=== PATIENT | male | born 1955 | race Caucasian/White ===

== ENCOUNTER 2018-04-28 15:21 | Emergency (ER) | payer SELFPAY ==
[2018-04-28] MEDS ORDERED: Morphine 10 MG/ML Syringe IVPUSH ONE ×2 (15:48→16:10)
--- NOTE | 2018-04-28 15:54 | EDM.PDOC ---
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 Treatments DIAGNOSTIC MEDICAL SONOGRAPHER: Reports: Other (see below) Other Treatments DIAGNOSTIC MEDICAL SONOGRAPHER: Tylenol Left rib Pain Score (Numeric/FACES): 10 - Related Data Allergies Allergy/AdvReac Type Severity Reaction Status Date / Time No Known Allergies Allergy Verified 04/28/18 15:37 Home Meds: Home Meds Aspirin [Halfprin] 81 mg PO DAILY 04/28/18 [History] Carvedilol 25 mg PO BID 04/28/18 [History] Furosemide 20 mg PO DAILY 04/28/18 [History] Lidocaine 5% [Lidoderm 5%] 1 patch TOP DAILY 04/28/18 [History] Warfarin [Coumadin] 5 mg PO DAILY 04/28/18 [History] hydrALAZINE [Apresoline] 25 mg PO BEDTIME 04/28/18 [History] hydrALAZINE [Apresoline] 50 mg PO DAILY 04/28/18 [History] Past Medical History HEENT History: Reports: Impaired Vision Cardiovascular History: Reports: Afib, Hypertension Respiratory History: Reports: Other (See Below) Other Respiratory History: Hx: Collapsed lung Musculoskeletal History: Reports: Arthritis, Back Pain, Chronic Endocrine/Metabolic History: Reports: Obesity/BMI 30+ - Past Surgical History GI Surgical History: Reports: Colonoscopy, Hernia, Inguinal Musculoskeletal Surgical History: Reports: Knee Replacement Social & Family History - Tobacco Use Smoking Status *Q: Former Smoker Used Tobacco, but Quit: Yes Month/Year Tobacco Last Used: 2015 - Caffeine Use Caffeine Use: Reports: Coffee - Recreational Drug Use Recreational Drug Use: No ED ROS GENERAL - Review of Systems Review Of Systems: See Below Constitutional: Reports: No Symptoms Respiratory: Reports: No Symptoms Cardiovascular: Reports: No Symptoms GI/Abdominal: Reports: Abdominal Pain. Denies: Anorexia, Bloody Stool, Constipation, Diarrhea, Nausea, Vomiting Skin: Reports: No Symptoms Neurological: Reports: No Symptoms ED EXAM, GENERAL - Physical Exam Exam: See Below Exam Limited By: No Limitations General Appearance: Alert, Moderate Distress Head: Atraumatic, Normocephalic Neck: Normal Inspection Respiratory/Chest: No Respiratory Distress, Lungs Clear, Normal Breath Sounds, Other (tender over the left lower ribs. ) Cardiovascular: Normal Peripheral Pulses, Regular Rate, Rhythm GI/Abdominal: Normal Bowel Sounds, Soft, No Distention, Tender Course - Vital Signs Text/Narrative:: labs and CT results were explained to pt. pt is hypotensive but tolerating this well / asymptomatic in this regards, HR is normal and rest of vitals are WNL, pt was given 2 boluses of NS 250 each and running fluids now at 100 cc/hr, pt has Hx of CHF and Hx of eisily going into CHF exacerbation. pt was given morphine then fentanyl for pain control . hg was 13 then on repeat is 11. results were discussed with Dr Haile / Trauma physician at [facility] and he was in acceptance of pt care. Last Recorded V/S: Last Vital Signs Temp 36.4 C 04/28/18 21:19 Pulse 113 H 04/28/18 22:03 Resp 20 04/28/18 22:03 BP 93/54 L 04/28/18 22:03 Pulse Ox 95 04/28/18 22:03 - Orders/Labs/Meds Orders: Active Orders 24 hr Category Date Time Status Abdomen Pelvis wo Cont [CT] Stat Exams 04/28/18 17:20 Taken Chest wo Cont [CT] Stat Exams 04/28/18 21:29 Ordered Ribs 2V w Chest Lt [CR] Stat Exams 04/28/18 15:48 Taken Diatrizoate Blanca/Diatrizoate Na [Gastrografin 37%] Med 04/28/18 19:30 Active 30 ml PO . DIRECTED Sodium Chloride 0.9% [Normal Saline] 1,000 ml Med 04/28/18 21:00 Active IV ASDIRECTED Sodium Chloride 0.9% [Saline Flush] Med 04/28/18 16:22 Active 10 ml FLUSH ASDIRECTED PRN Medication Orders Diatrizoate Meglum/Diatrizoate Sod (Gastrografin 37%) 30 ml PO . DIRECTED IZZY Sodium Chloride (Normal Saline) 1,000 mls @ 999 mls/hr IV ASDIRECTED IZZY Stop: 03/19/19 20:51 Last Admin: 04/28/18 23:00 Dose: 999 mls/hr Sodium Chloride (Saline Flush) 10 ml FLUSH ASDIRECTED PRN PRN Reason: IV Use Last Admin: 04/28/18 16:00 Dose: 10 ml Labs: Laboratory Tests 04/28/18 04/28/18 04/28/18 Range/Units 15:58 15:58 23:20 WBC 12.3 H (4.5-12.0) X10-3/uL RBC 4.64 (4.30-5.75) x10(6)uL Hgb 13.3 L 11.0 L (13.5-17.8) g/dL Hct 39.9 (30.0-51.3) % MCV 86.1 (80-96) fL MCH 28.7 (27.7-33.6) pg MCHC 33.3 (32.2-35.4) g/dL RDW 14.8 (11.5-15.5) % Plt Count 288 (125-369) X10(3)uL MPV 8.8 (7.4-10.4) fL Neut % (Auto) 79.5 (46-82) % Lymph % (Auto) 10.6 L (13-37) % Jefferson % (Auto) 5.6 (4-12) % Eos % (Auto) 1 (1.0-5.0) % Baso % (Auto) 3 H (0-2) % Neut # (Auto) 9.8 H (1.6-8.3) # Lymph # (Auto) 1.3 (0.6-5.0) # Jefferson # (Auto) 0.7 (0.0-1.3) # Eos # (Auto) 0.1 (0.0-0.8) # Baso # (Auto) 0.4 H (0.0-0.2) # Sodium 140 (135-145) mmol/L Potassium 5.6 H (3.5-5.3) mmol/L Chloride 101 (100-110) mmol/L Carbon Dioxide 27 (21-32) mmol/L BUN 36 H (7-18) mg/dL Creatinine 2.8 H* (0.70-1.30) mg/dL Est Cr Clr Drug Dosing 30.02 mL/min Estimated GFR (MDRD) 23 L (>60) BUN/Creatinine Ratio 12.9 (9-20) Glucose 184 H (80-116) mg/dL Calcium 9.6 (8.6-10.2) mg/dL Total Bilirubin 0.8 (0.1-1.3) mg/dL AST 13 (5-25) IU/L ALT 24 (12-36) U/L Alkaline Phosphatase 78 (56-112) IU/L Total Protein 8.1 H (6.0-8.0) g/dL Albumin 4.2 (3.2-4.6) g/dL Globulin 3.9 g/dL Albumin/Globulin Ratio 1.1 Meds: Medications Generic Name Dose Route Start Last Admin Trade Name Freq PRN Reason Stop Dose Admin Diatrizoate Meglum/Diatrizoate Sod 30 ml 04/28/18 19:30 Gastrografin 37% PO . DIRECTED IZZY Sodium Chloride 1,000 mls @ 999 mls/hr 04/28/18 21:00 04/28/18 23:00 Normal Saline IV 05/02/18 20:51 999 mls/hr ASDIRECTED IZZY Administration Sodium Chloride 10 ml 04/28/18 16:22 04/28/18 16:00 Saline Flush FLUSH 10 ml ASDIRECTED PRN Administration IV Use Discontinued Medications Generic Name Dose Route Start Last Admin Trade Name Freq PRN Reason Stop Dose Admin Morphine Sulfate 8 mg 04/28/18 15:48 04/28/18 16:21 Morphine IVPUSH 04/28/18 15:49 Not Given ONETIME ONE Morphine Sulfate 8 mg 04/28/18 16:10 04/28/18 16:21 Morphine IVPUSH 04/28/18 16:11 Not Given ONETIME ONE Morphine Sulfate 8 mg 04/28/18 16:15 04/28/18 16:18 Morphine IVPUSH 04/28/18 16:16 8 mg ONETIME ONE Administration Morphine Sulfate 4 mg 04/28/18 20:51 Morphine IVPUSH 04/28/18 20:52 ONETIME ONE Departure - Departure Time of Disposition: 23:44 Disposition: DC/Tfer to Acute Hospital 02 Clinical Impression: Abdominal trauma - Discharge Information Referrals: Asa Jolly PA [Primary Care Provider] - Forms: ED Department Discharge - My Orders Last 24 Hours: My Active Orders 04/28/18 15:48 Ribs 2V w Chest Lt [CR] Stat 04/28/18 16:22 Sodium Chloride 0.9% [Saline Flush] 10 ml FLUSH ASDIRECTED PRN 04/28/18 17:20 Abdomen Pelvis wo Cont [CT] Stat 04/28/18 19:30 Diatrizoate Blanca/Diatrizoate Na [Gastrografin 37%] 30 ml PO . DIRECTED 04/28/18 21:00 Sodium Chloride 0.9% [Normal Saline] 1,000 ml IV ASDIRECTED 04/28/18 21:29 Chest wo Cont [CT] Stat - Assessment/Plan Last 24 Hours: My Active Orders 04/28/18 15:48 Ribs 2V w Chest Lt [CR] Stat 04/28/18 16:22 Sodium Chloride 0.9% [Saline Flush] 10 ml FLUSH ASDIRECTED PRN 04/28/18 17:20 Abdomen Pelvis wo Cont [CT] Stat 04/28/18 19:30 Diatrizoate Blanca/Diatrizoate Na [Gastrografin 37%] 30 ml PO . DIRECTED 04/28/18 21:00 Sodium Chloride 0.9% [Normal Saline] 1,000 ml IV ASDIRECTED 04/28/18 21:29 Chest wo Cont [CT] Stat
[2018-04-28] MEDS ORDERED: Morphine 10 MG/ML SDV IVPUSH ONE (16:15)
[2018-04-28] MEDS ORDERED: Sodium Chloride 0.9% 10 ML Syringe FLUSH PRN (16:22)
[2018-04-28] MEDS ORDERED: Diatrizoate Meglumine/Diatrizoate Sodium 37% 30 ML Bottle PO SCH (19:30)
[2018-04-28] MEDS ORDERED: Morphine 4 MG/ML Syringe IVPUSH ONE (20:51)
[2018-04-28] MEDS: Sodium Chloride 0.9% 1,000 ML IV SCH ×2 (20:52→23:00)
[2018-04-28] MEDS ORDERED: fentaNYL 100 MCG/2 ML SDV IVPUSH ONE (23:35)
[2018-04-28] MEDS ORDERED: Phytonadione 10 MG in Sodium Chloride 0.9% 50 ML IV ONE (23:48)
[2018-04-29] MEDS: Sodium Chloride 0.9% 1,000 ML IV SCH (00:01)
--- NOTE | 2018-05-01 11:50 | CR ---
INDICATION: Left rib pain, impact with safety bar on [employer] while snow blowing. LEFT RIBS WITH CHEST: PA view of the chest and 4 images of the left ribs were obtained 04/28/18. No definite active infiltrate, effusion, contusion, or pneumothorax was identified. The heart did not appear enlarged. The aorta is slightly calcified in the arch area. Old healed rib fractures are noted on the right lower anterolateral ribs. No new acute displaced fracture sites could be identified on the left - no specific bony abnormality was seen. There also appear to be old healed rib fractures at the anterior tips of the 7th and 8th left ribs. IMPRESSION: No acute abnormalities. Old rib fractures are noted on the right and the left. If occult fracture site is suspected clinically, especially if involving an old previous fracture on the left, re-examination in 10-14 days and /or nuclear bone imaging or CT of the ribs may be helpful for further evaluation. NIKD
== END 2018-04-29 01:30 ==
LOC: FB.ED 15:21
DX: S39.91XA Unspecified injury of abdomen, initial encounter (principal); S29.9XXA Unspecified injury of thorax, initial encounter; I48.91 Unspecified atrial fibrillation; I10 Essential (primary) hypertension; Z79.82 Long term (current) use of aspirin; Z79.899 Other long term (current) drug therapy; W22.8XXA Striking against or struck by other objects, initial encounter
CPT/HCPCS: 36415; 36430; 71101; 71250; 74176; 80053; 85018; 85025; 85610; 85730; 86850; 86900; 86901; 86920; 86922; 96365; 99285; J2270; J3430; J7030; J7050; P9016

== ENCOUNTER 2018-08-11 05:17 | Emergency (ER) | payer BC, OTHER ==
[2018-08-11] MEDS ORDERED: Acetaminophen/oxyCODONE 325-5 MG Tab PO ONE ×2 (05:18)
[2018-08-11] MEDS ORDERED: Morphine 10 MG/ML Syringe IM ONE ×2 (06:17→06:26)
[2018-08-11] MEDS ORDERED: Morphine 10 MG/ML SDV ONE (06:20)
[2018-08-11] MEDS: Morphine 10 MG/ML SDV IVPUSH ONE ×2 (06:21→06:27)
--- NOTE | 2018-08-11 06:21 | EDM.PDOC ---
ED HPI GENERAL MEDICAL PROBLEM - General Chief Complaint: General Stated Complaint: PAIN Time Seen by Provider: 08/11/18 06:18 Source of Information: Reports: Patient History Limitations: Reports: No Limitations - History of Present Illness INITIAL COMMENTS - FREE TEXT/NARRATIVE: R knee pain x a few hours. Sudden onset since 9 pm. Swollen,no trauma. Has had a broken vessel in the past that had a similar presentation. he denies fever, chills. Has had knee arthroplasty on that knee. right knee Pain Score (Numeric/FACES): 10 - Related Data Allergies Allergy/AdvReac Type Severity Reaction Status Date / Time No Known Allergies Allergy Verified 04/28/18 15:37 Home Meds: Home Meds Aspirin [Halfprin] 81 mg PO DAILY 04/28/18 [History] Carvedilol 25 mg PO BID 04/28/18 [History] Furosemide 20 mg PO DAILY 04/28/18 [History] Lidocaine 5% [Lidoderm 5%] 1 patch TOP DAILY 04/28/18 [History] Warfarin [Coumadin] 5 mg PO DAILY 04/28/18 [History] hydrALAZINE [Apresoline] 25 mg PO BEDTIME 04/28/18 [History] hydrALAZINE [Apresoline] 50 mg PO DAILY 04/28/18 [History] Past Medical History HEENT History: Reports: Impaired Vision Cardiovascular History: Reports: Afib, Hypertension Respiratory History: Reports: Other (See Below) Other Respiratory History: Hx: Collapsed lung Musculoskeletal History: Reports: Arthritis, Back Pain, Chronic Endocrine/Metabolic History: Reports: Obesity/BMI 30+ - Past Surgical History GI Surgical History: Reports: Colonoscopy, Hernia, Inguinal Musculoskeletal Surgical History: Reports: Knee Replacement Social & Family History - Family History Family Medical History: Noncontributory - Tobacco Use Smoking Status *Q: Former Smoker Used Tobacco, but Quit: Yes Month/Year Tobacco Last Used: 2013 - Caffeine Use Caffeine Use: Reports: Coffee ED ROS GENERAL - Review of Systems Review Of Systems: ROS reveals no pertinent complaints other than HPI. ED EXAM, GENERAL - Physical Exam Exam: See Below Exam Limited By: No Limitations General Appearance: Alert, WD/WN Ear Exam: Bilateral Ear: Auricle Normal, Canal Normal, TM normal Extremities: Joint Swelling, Increased Warmth. No: Redness Neurological: Alert, Oriented Course - Vital Signs Last Recorded V/S: Last Vital Signs Temp 98.0 F 08/11/18 06:53 Pulse 82 08/11/18 06:53 Resp 17 08/11/18 06:53 BP 121/80 08/11/18 06:53 Pulse Ox 93 L 08/11/18 06:53 - Orders/Labs/Meds Labs: Laboratory Tests 08/11/18 Range/Units 05:40 PT 31.7 H (8.7-11.1) INR 3.31 H (0.89-1.13) Meds: Medications Discontinued Medications Generic Name Dose Route Start Last Admin Trade Name Ibis PRN Reason Stop Dose Admin Morphine Sulfate 10 mg 08/11/18 06:17 08/11/18 06:15 Morphine IM 08/11/18 06:18 10 mg ONETIME ONE Administration Morphine Sulfate 10 mg 08/11/18 06:19 08/11/18 06:27 Morphine IVPUSH 08/11/18 06:20 Not Given ONETIME ONE Morphine Sulfate Confirm 08/11/18 06:20 08/11/18 06:27 Morphine Administered 08/11/18 06:21 Not Given Dose 10 mg .ROUTE .STK-MED ONE Morphine Sulfate 10 mg 08/11/18 06:26 08/11/18 06:31 Morphine IM 08/11/18 06:27 Not Given ONETIME ONE Departure - Departure Time of Disposition: 20:00 Disposition: Home, Self-Care 01 Condition: Good Clinical Impression: Knee effusion - Discharge Information Instructions: Preventing Cerebrovascular Disease, Deep Vein Thrombosis Referrals: PCP,None [Primary Care Provider] - Forms: ED Department Discharge Additional Instructions: hold coumadin today and tomorrow follow up with your primary care on Tuesday you may take percocet po 1 tab every 6 hour as needed. return to ED if you have any worsting symptoms - Problem List & Annotations (1) Knee effusion Status: Acute Qualifiers: Laterality: right Qualified Code(s): M25.461 - Effusion, right knee - Problem List Review Problem List Initiated/Reviewed/Updated: Yes - Assessment/Plan Plan: Sandra ellis is thought to be hemarthrosis. I recommend Ice,Rest.Hold 2 doses of Coumadin(INR today 3.3). See PCP on Tuesday. Percocet for pain meanwhile was dispensed.
== END 2018-08-11 06:59 | disposition home or self-care (01) ==
LOC: FB.ED 05:17
DX: M25.461 Effusion, right knee (principal); I10 Essential (primary) hypertension; I48.91 Unspecified atrial fibrillation; M19.90 Unspecified osteoarthritis, unspecified site; E66.9 Obesity, unspecified; Z79.82 Long term (current) use of aspirin; Z79.01 Long term (current) use of anticoagulants; Z79.899 Other long term (current) drug therapy; Z87.891 Personal history of nicotine dependence
CPT/HCPCS: 36415; 85610; 96372; 99283; A9270; J2270